=== PATIENT | male | born 1990 | race Caucasian/White ===

== ENCOUNTER 2017-12-23 14:51 | Emergency (ER) | payer BC ==
[~2017-12-23] VITALS: Ht 195.6 cm; Wt 136.1 kg
--- NOTE | 2017-12-23 15:58 | NUR ---
PATIENT SHIELDED 63@4.0 (AP, LAT, OBLIQUE) EXAM COMPLEAT 15:30
--- NOTE | 2017-12-23 15:59 | NUR ---
MSE COMPLETED, SLING PLACED TO RT ARM. PT D/C'D HOME, ACI/RX X1 GIVEN. PT AMBULATED W/O DIFF/TOOK ALL BELONGINGS.
[2017-12-23 16:00] VITALS: BP 133/88
== END 2017-12-23 16:01 | disposition home or self-care (01) ==
LOC: ER 14:57
DX: S52.121A Displaced fracture of head of right radius, initial encounter for closed fracture (principal); W19.XXXA Unspecified fall, initial encounter; Y93.89 Activity, other specified; Y92.89 Other specified places as the place of occurrence of the external cause; Y99.8 Other external cause status
CPT/HCPCS: 73080; A4663